=== PATIENT | male | born 1945 | race Caucasian/White ===

== ENCOUNTER 2020-11-07 15:49 | Inpatient (IN) | payer MEDICARE, OTHER ==
[~2020-11-07] VITALS: Ht 188 cm; Wt 127.5 kg
[~2020-11-07 15:49] MED LIST: BACTRIM DS TAB1 EACH PO
[2020-11-07 17:04] LABS: HEMOGLOBIN 13.3 gm/dl (14.0-17.5); RED BLOOD COUNT 4.49 M/UL (4.20-5.50)
[2020-11-07 17:22] LABS: BUN/CREATININE RATIO 34 (0-10)
[2020-11-07] MEDS ORDERED: TYLENOL 500 MG500 MG PO (19:43)
[2020-11-07] MEDS ORDERED: ALOE VESTA 43% TOP (19:44)
[2020-11-07] MEDS ORDERED: ASPIRIN CHEWABL81 MG PO (19:46)
[2020-11-07] MEDS ORDERED: ARTIFICIAL TEAR15 M2 OU (19:46)
[2020-11-07] MEDS ORDERED: ATORVASTATIN CA40 MG PO (19:47)
[2020-11-07] MEDS ORDERED: ALL DAY ALLERGY10 M2 PO (19:49)
[2020-11-07] MEDS ORDERED: DILTIAZEM ER120 M1 PO (19:50)
[2020-11-07] MEDS ORDERED: SURFAK240 MG PO (19:51)
[2020-11-07] MEDS ORDERED: ELIQUIS 5 MG TAB5 MG PO (19:52)
[2020-11-07] MEDS ORDERED: ACID CONTROLLER20 MG PO (19:52)
[2020-11-07] MEDS ORDERED: FISH OIL 1,0001 EACH PO (19:53)
[2020-11-07] MEDS ORDERED: LASIX 40 MG TAB40 MG PO (19:53)
[2020-11-07] MEDS ORDERED: GABAPENTIN300 MG PO (19:56)
[2020-11-07] MEDS ORDERED: NEURONTIN600 MG PO (19:57)
[2020-11-07] MEDS ORDERED: GAVILAX17 GM PO (19:58)
[2020-11-07] MEDS ORDERED: HUMALOG100 UNIT/2 SC (20:00)
[2020-11-07] MEDS ORDERED: IMDUR ER TAB 3030 MG PO (20:03)
[2020-11-07] MEDS ORDERED: JARDIANCE25 MG PO (20:03)
[2020-11-07] MEDS ORDERED: CONSTULOSE10 GM/15 M PO (20:04)
[2020-11-07] MEDS ORDERED: LIDOCAINE1 EAC1 TP (20:09)
[2020-11-07] MEDS ORDERED: ZESTRIL2.5 MG PO (20:10)
[2020-11-07] MEDS ORDERED: NYSTATIN TOP (20:14)
[2020-11-07] MEDS ORDERED: ZINC TOP (20:14)
[2020-11-07] MEDS ORDERED: SKELAXIN TAB 8800 MG PO (20:15)
[2020-11-07] MEDS ORDERED: NASONEX17 GM (20:16)
[2020-11-07] MEDS ORDERED: SINGULAIR10 MG PO (20:16)
[2020-11-07] MEDS ORDERED: MYSOLINE TAB 5050 MG PO (20:17)
[2020-11-07] MEDS ORDERED: INDERAL TAB 4040 MG PO (20:18)
[2020-11-07] MEDS ORDERED: SENNA8.6 MG PO (20:19)
[2020-11-07] MEDS ORDERED: ZOLOFT100 MG PO (20:19)
[2020-11-07] MEDS ORDERED: ALDACTONE 25MG25 MG PO (20:23)
[2020-11-07] MEDS ORDERED: TOUJEO MAX300 UNIT/1 SQ (20:24)
[2020-11-07] MEDS ORDERED: TUSSIN COUGH PO (20:28)
[2020-11-07] MEDS ORDERED: VOLTAREN100 GM TP (20:29)
[2020-11-07] MEDS ORDERED: ZOFRAN ODT 4 MG4 MG PO (20:30)
[2020-11-09 02:55] LABS: HEMOGLOBIN 12.7 gm/dl (14.0-17.5); RED BLOOD COUNT 4.36 M/UL (4.20-5.50); WHITE BLOOD COUNT 13.4 K/UL (4.5-11.0)
[2020-11-09 03:25] LABS: BUN/CREATININE RATIO 36 (0-10)
[2020-11-10 03:38] LABS: HEMOGLOBIN 13.1 gm/dl (14.0-17.5); RED BLOOD COUNT 4.5 M/UL (4.20-5.50)
[2020-11-10 03:56] LABS: BUN/CREATININE RATIO 33 (0-10)
[2020-11-12 02:59] LABS: HEMOGLOBIN 13.5 gm/dl (14.0-17.5); RED BLOOD COUNT 4.64 M/UL (4.20-5.50); WHITE BLOOD COUNT 11.8 K/UL (4.5-11.0)
[2020-11-12 03:14] LABS: BUN/CREATININE RATIO 32 (0-10)
[2020-11-13 02:31] LABS: RED BLOOD COUNT 4.79 M/UL (4.20-5.50); WHITE BLOOD COUNT 12.5 K/UL (4.5-11.0)
[2020-11-13 02:48] LABS: BUN/CREATININE RATIO 33 (0-10)
[2020-11-13] MEDS ORDERED: LOPRESSOR 50 MG50 MG PO (11:43)
[2020-11-13] MEDS ORDERED: FUROSEMIDE20 MG PO (11:43)
[2020-11-13] MEDS ORDERED: ALDACTONE 25MG25 MG PO (11:43)
[2020-11-13] MEDS ORDERED: LEVOFLOXACIN500 MG PO (11:43)
--- NOTE | 2020-11-13 17:57 | NUR ---
CALLED REPORT TO GURU AT [facility]. [phone] AT [phone]
== END 2020-11-13 17:25 | DRG 286 ==
LOC: ER1 15:49 → ZEROF 19:00 → PROG CARE 19:00
PROVIDERS: Family Medicine; Internal Medicine; ADMIT Hospitalist
PROC: B24BZZZ Ultrasonography of Heart with Aorta (ICD-10-PCS; 2020-11-08)
PROC: B2111ZZ Fluoroscopy of Multiple Coronary Arteries using Low Osmolar Contrast (ICD-10-PCS; principal; 2020-11-12)
PROC: B2181ZZ Fluoroscopy of Left Internal Mammary Bypass Graft using Low Osmolar Contrast (ICD-10-PCS; 2020-11-12)
PROC: B2131ZZ Fluoroscopy of Multiple Coronary Artery Bypass Grafts using Low Osmolar Contrast (ICD-10-PCS; 2020-11-12)
PROC: 4A023N7 Measurement of Cardiac Sampling and Pressure, Left Heart, Percutaneous Approach (ICD-10-PCS; 2020-11-12)
PROC: 4A033BC Measurement of Arterial Pressure, Coronary, Percutaneous Approach (ICD-10-PCS; 2020-11-12)
DX: I11.0 Hypertensive heart disease with heart failure (principal); J18.9 Pneumonia, unspecified organism; J96.22 Acute and chronic respiratory failure with hypercapnia; J96.21 Acute and chronic respiratory failure with hypoxia; I48.20 Chronic atrial fibrillation, unspecified; Z20.822 Contact with and (suspected) exposure to COVID-19; T82.858A Stenosis of other vascular prosthetic devices, implants and grafts, initial encounter; L03.116 Cellulitis of left lower limb; I50.23 Acute on chronic systolic (congestive) heart failure; I25.5 Ischemic cardiomyopathy; Z79.01 Long term (current) use of anticoagulants; E11.65 Type 2 diabetes mellitus with hyperglycemia; G89.29 Other chronic pain; M54.9 Dorsalgia, unspecified; R53.81 Other malaise; E87.70 Fluid overload, unspecified; E78.5 Hyperlipidemia, unspecified; I25.10 Atherosclerotic heart disease of native coronary artery without angina pectoris; Z95.1 Presence of aortocoronary bypass graft; Z82.49 Family history of ischemic heart disease and other diseases of the circulatory system; Z83.3 Family history of diabetes mellitus; Z87.891 Personal history of nicotine dependence; Z88.8 Allergy status to other drugs, medicaments and biological substances; Z79.82 Long term (current) use of aspirin; Z79.4 Long term (current) use of insulin; Z79.899 Other long term (current) drug therapy; Z95.5 Presence of coronary angioplasty implant and graft
CPT/HCPCS: ECHO; 36415; 36600; 71045; 80048; 80053; 80162; 82550; 82553; 82803; 82962; 83605; 83735; 83874; 83880; 84484; 85025; 85027; 87040; 87635; 93005; 93306; 94760; 96365; 96372; 96375; 97163; 99152; 99153; 99285; C1769; C1894; J1160; J1644; J1940; J1956; J2250; J2543; J3010; J7040; Q9967; U0002

== ENCOUNTER → 2021-07-02 | Outpatient (CLI) | payer MEDICARE, OTHER ==
[~2021-07-02] MED LIST changes: +ACID CONTROLLER20 MG PO; +ALDACTONE 25MG25 MG PO; +ALL DAY ALLERGY10 M2 PO; +ALOE VESTA 43% TOP; +ARTIFICIAL TEAR15 M2 OU; +ASPIRIN CHEWABL81 MG PO; +ATORVASTATIN CA40 MG PO; +CONSTULOSE10 GM/15 M PO; +DILTIAZEM ER120 M1 PO; +ELIQUIS 5 MG TAB5 MG PO; +FISH OIL 1,0001 EACH PO; +FUROSEMIDE20 MG PO; +GABAPENTIN300 MG PO; +GAVILAX17 GM PO; +HUMALOG100 UNIT/2 SC; +IMDUR ER TAB 3030 MG PO; +INDERAL TAB 4040 MG PO; +JARDIANCE25 MG PO; +LASIX 40 MG TAB40 MG PO; +LEVOFLOXACIN500 MG PO; +LIDOCAINE1 EAC1 TP; +LOPRESSOR 50 MG50 MG PO; +MYSOLINE TAB 5050 MG PO; +NASONEX17 GM; +NEURONTIN600 MG PO; +NYSTATIN TOP; +SENNA8.6 MG PO; +SINGULAIR10 MG PO; +SKELAXIN TAB 8800 MG PO; +SURFAK240 MG PO; +TOUJEO MAX300 UNIT/1 SQ; +TUSSIN COUGH PO; +TYLENOL 500 MG500 MG PO; +VOLTAREN100 GM TP; +ZESTRIL2.5 MG PO; +ZINC TOP; +ZOFRAN ODT 4 MG4 MG PO; +ZOLOFT100 MG PO
== END ==
LOC: WCC 12:03
DX: E11.621 Type 2 diabetes mellitus with foot ulcer (principal); I11.0 Hypertensive heart disease with heart failure; I50.9 Heart failure, unspecified; I25.10 Atherosclerotic heart disease of native coronary artery without angina pectoris; I48.91 Unspecified atrial fibrillation; G47.30 Sleep apnea, unspecified; J44.9 Chronic obstructive pulmonary disease, unspecified; E11.40 Type 2 diabetes mellitus with diabetic neuropathy, unspecified; M47.12 Other spondylosis with myelopathy, cervical region; K21.9 Gastro-esophageal reflux disease without esophagitis; I42.0 Dilated cardiomyopathy; I25.5 Ischemic cardiomyopathy; Z79.4 Long term (current) use of insulin; Z95.1 Presence of aortocoronary bypass graft
CPT/HCPCS: G0463

== ENCOUNTER → 2021-10-25 | Outpatient (CLI) | payer MEDICARE, OTHER | LOC: EROP 23:13 | DX: Z53.9 Procedure and treatment not carried out, unspecified reason (principal) | CPT/HCPCS: 81001; 87077; 87086; 87186 ==

== ENCOUNTER → 2022-04-21 | Outpatient (CLI) | payer MEDICARE, OTHER | LOC: HEART 5 15:09 | DX: J44.9 Chronic obstructive pulmonary disease, unspecified (principal) | CPT/HCPCS: 94060; 94729 ==

== ENCOUNTER → 2022-06-13 | Outpatient (CLI) | payer MEDICARE, OTHER | LOC: LAB 06:48 | DX: I50.20 Unspecified systolic (congestive) heart failure (principal); R06.02 Shortness of breath | CPT/HCPCS: 83880 ==